=== PATIENT | female | born 1935 | race African-American/Black ===

== ENCOUNTER 2017-09-30 19:04 | Inpatient (IN) ==
[2017-10-10 12:49] VITALS: BP 107/64
== END 2017-10-10 12:30 | disposition home or self-care (01) | DRG 191 ==
LOC: EDUNIT# → EDBD → N.ED 19:04 → N.EDINP 21:22 → N.5E 22:10
PROVIDERS: ADMIT Internal Medicine; ATTEND Internal Medicine

== ENCOUNTER 2019-10-10 04:54 | Inpatient (IN) ==
[2019-10-10] MEDS ORDERED: ONDANSETRON 4 MG/2 ML VIAL IV STA (05:12)
[2019-10-10] MEDS ORDERED: methylPREDNISolone SOD SUC 125 MG/2 ML VIAL IV STA (05:12)
[2019-10-10] MEDS ORDERED: MORPHINE 4 MG/1 ML VIAL IV STA (05:12)
[2019-10-10 05:20] LABS: Basophils # 0.1 10*3/uL (0.0-0.2); Basophils % 1.2 % (0.0-0.8); Eosinophils # 0.9 10*3/uL (0.0-0.87); Eosinophils % 16.3 % (0.00-10.9); Hematocrit 41.3 VOL% (35.7-47.0); Hemoglobin 12.6 GM/DL (12.0-16.0); Immature Granulocytes % 0.2 %; Immature Granulocytes Absolute 0.01 #; Lymphocytes # 1.9 10*3/uL (1.4-4.0); Mean Corpuscular HGB Conc 30.5 GM/DL (32-36); Mean Corpuscular Volume 75.6 FL (87-102); Mean Platelet Volume 11.5 FL (9.6-12.0); Monocytes % 13.7 % (1.7-12.7); Neutrophils % 35.6 % (38.7-73.9); Platelet Count 180 T/CUMM (130-400); Red Blood Count 5.46 MC/CUMM (3.8-5.5); Red Cell Distribution Width 16.7 % (9.3-17.3); White Blood Count 5.6 T/CUMM (4-12)
[2019-10-10 05:22] LABS: PT Patient Result 10.7 SECS (9.8-11.9); Partial Thromboplastin Time 32.3 SECS (23.9-33.8)
[2019-10-10] MEDS ORDERED: ALBUTEROL 2.5 MG/3 ML NEB RESP TX ONE (05:25)
[2019-10-10 05:32] LABS: PT Patient Result 10.7 SECS (9.8-11.9)
[2019-10-10 05:43] LABS: ABG Base Excess 2.1 MMOL/L (-2.5-2.5); ABG HCO3 26.3 MMOL/L (20-26); ABG Oxygen Saturation 97.7 % (95-100); ABG PCO2 45.1 MM HG (35-48); ABG PH 7.394 (7.35-7.45); ABG PO2 96.8 MM HG (80-95); ABG TCO2 24.2 MMOL/L (23-27); Allen Test Positive
[2019-10-10] MEDS ORDERED: ALBUTEROL NEB SOLN 5 MG/ML 20 ML/BOTTLE CONT NEB SCH (05:45)
[2019-10-10 05:46] LABS: Albumin 3.9 G/DL (3.4-5.0); Bilirubin,Total 0.4 MG/DL (0.2-1.0); Calcium 9.4 MG/DL (8.5-10.1); Osmolality,Calculated 281.4 MOS/KG (273-304); Total Protein 7.2 G/DL (6.4-8.3)
[2019-10-10 05:55] LABS: Eosinophils 10 % (0-10); Hypochromasia 1+; Lymphocytes 31 % (20-55); Platelet Estimate Adequate; Segmented Neutrophils 47 % (50-85); Total Cells Counted 100
[2019-10-10 05:56] LABS: Microcytosis 1+
[2019-10-10] MEDS ORDERED: ALBUTEROL 2.5 MG/3 ML NEB RESP TX STA (08:22)
[2019-10-10] MEDS ORDERED: ONDANSETRON 4 MG/2 ML VIAL IV PRN (09:35)
[2019-10-10] MEDS ORDERED: ACETAMINOPHEN 325 MG TABLET PO PRN (09:35)
[2019-10-10] MEDS ORDERED: ALBUTEROL 2.5 MG/3 ML NEB RESP TX PRN (09:37)
[2019-10-10] MEDS: SODIUM CHLORIDE 0.45% 1,000 ML IV SCH ×2 (12:03→20:40)
[2019-10-10] MEDS: methylPREDNISolone SOD SUC 40 MG/1 ML VIAL IV SCH ×2 (12:05→18:55)
[2019-10-10] MEDS: ENOXAPARIN 40 MG/0.4 ML SYRINGE SUBCUT SCH (12:06)
[2019-10-10] MEDS: ALBUTEROL 2.5 MG/3 ML NEB RESP TX SCH ×2 (13:00→19:25)
[2019-10-10] MEDS: LEVOFLOXACIN INJ 500 MG in PREMIX 1 EACH IV SCH (14:18)
[2019-10-10] MEDS: POTASSIUM CHLORIDE 8 MEQ CAPSULE PO SCH ×2 (14:19→20:39)
[2019-10-10] MEDS ORDERED: IPRATROPIUM 500 MCG/2.5 ML NEB RESP TX PRN (15:00)
[2019-10-10] MEDS: THEOPHYLLINE ER (24 HR) 400 MG TABLET PO SCH (18:02)
[2019-10-10] MEDS: MONTELUKAST 10 MG TABLET PO SCH (20:39)
[2019-10-10] MEDS: BUDESONIDE/FORMOTEROL 160-4.5 INHALER 6 GM INH SCH (20:39)
[2019-10-10] MEDS: DOCUSATE SODIUM 100 MG CAPSULE PO SCH (20:39)
[2019-10-11] MEDS: ALBUTEROL 2.5 MG/3 ML NEB RESP TX SCH ×4 (00:45→19:33)
[2019-10-11] MEDS: methylPREDNISolone SOD SUC 40 MG/1 ML VIAL IV SCH ×3 (03:08→20:26)
[2019-10-11] MEDS: SODIUM CHLORIDE 0.45% 1,000 ML IV SCH ×3 (05:08→22:23)
[2019-10-11 05:34] LABS: Basophils % 0.6 % (0.0-0.8); Hematocrit 35.4 VOL% (35.7-47.0); Hemoglobin 10.7 GM/DL (12.0-16.0); Immature Granulocytes % 0.4 %; Immature Granulocytes Absolute 0.02 #; Lymphocytes # 0.5 10*3/uL (1.4-4.0); Lymphocytes % 10.3 % (21.3-54.2); Mean Corpuscular HGB Conc 30.2 GM/DL (32-36); Mean Platelet Volume 11.4 FL (9.6-12.0); Monocytes % 2.5 % (1.7-12.7); Neutrophils % 86.2 % (38.7-73.9); Platelet Count 153 T/CUMM (130-400); Red Blood Count 4.72 MC/CUMM (3.8-5.5); Red Cell Distribution Width 16.4 % (9.3-17.3); White Blood Count 5.2 T/CUMM (4-12)
[2019-10-11 06:01] LABS: Calcium 8.7 MG/DL (8.5-10.1); Osmolality,Calculated 276.2 MOS/KG (273-304)
[2019-10-11] MEDS: LORATADINE 10 MG TABLET PO SCH (09:11)
[2019-10-11] MEDS: MULTIVITAMIN (CENTRUM) TABLET PO SCH (09:11)
[2019-10-11] MEDS: OLMESARTAN 20 MG TABLET PO SCH (09:11)
[2019-10-11] MEDS: DOCUSATE SODIUM 100 MG CAPSULE PO SCH ×2 (09:11→20:26)
[2019-10-11] MEDS: CHOLECALCIFEROL 1,000 UNIT TABLET PO SCH (09:12)
[2019-10-11] MEDS: atenoloL 25 MG TABLET PO SCH (09:12)
[2019-10-11] MEDS: ROSUVASTATIN 10 MG TABLET PO SCH (09:13)
[2019-10-11] MEDS: hydroCHLOROthiazide 25 MG TABLET PO SCH (09:13)
[2019-10-11] MEDS: amLODIPine 10 MG TABLET PO SCH (09:13)
[2019-10-11] MEDS: CALCIUM CARBONATE CHEW 500 MG TABLET PO SCH (09:14)
[2019-10-11] MEDS: POTASSIUM CHLORIDE 8 MEQ CAPSULE PO SCH ×3 (09:14→20:26)
[2019-10-11] MEDS: MELOXICAM 7.5 MG TABLET PO SCH (09:14)
[2019-10-11] MEDS: THEOPHYLLINE ER (24 HR) 400 MG TABLET PO SCH ×2 (09:14→16:55)
[2019-10-11] MEDS: PANTOPRAZOLE 40 MG TABLET PO SCH (09:14)
[2019-10-11] MEDS: BUDESONIDE/FORMOTEROL 160-4.5 INHALER 6 GM INH SCH ×2 (09:15→20:26)
[2019-10-11] MEDS: FLUTICASONE 50 MCG NASAL SPRAY 16 GM BOTTLE BOTH NARES SCH (10:22)
[2019-10-11] MEDS: ENOXAPARIN 40 MG/0.4 ML SYRINGE SUBCUT SCH (11:10)
[2019-10-11 11:52] LABS: Platelet Estimate Adequate
[2019-10-11] MEDS: LEVOFLOXACIN INJ 500 MG in PREMIX 1 EACH IV SCH (14:00)
[2019-10-11] MEDS: MONTELUKAST 10 MG TABLET PO SCH (20:26)
[2019-10-12] MEDS: ALBUTEROL 2.5 MG/3 ML NEB RESP TX SCH ×4 (00:10→19:20)
[2019-10-12] MEDS: methylPREDNISolone SOD SUC 40 MG/1 ML VIAL IV SCH ×3 (04:06→20:37)
[2019-10-12] MEDS: SODIUM CHLORIDE 0.45% 1,000 ML IV SCH ×2 (06:35→17:29)
[2019-10-12] MEDS: THEOPHYLLINE ER (24 HR) 400 MG TABLET PO SCH ×2 (09:00→16:40)
[2019-10-12] MEDS: MULTIVITAMIN (CENTRUM) TABLET PO SCH (09:00)
[2019-10-12] MEDS: OLMESARTAN 20 MG TABLET PO SCH (09:01)
[2019-10-12] MEDS: CALCIUM CARBONATE CHEW 500 MG TABLET PO SCH (09:01)
[2019-10-12] MEDS: MELOXICAM 7.5 MG TABLET PO SCH (09:01)
[2019-10-12] MEDS: amLODIPine 10 MG TABLET PO SCH (09:01)
[2019-10-12] MEDS: DOCUSATE SODIUM 100 MG CAPSULE PO SCH ×2 (09:01→20:36)
[2019-10-12] MEDS: hydroCHLOROthiazide 25 MG TABLET PO SCH (09:01)
[2019-10-12] MEDS: POTASSIUM CHLORIDE 8 MEQ CAPSULE PO SCH ×3 (09:02→20:36)
[2019-10-12] MEDS: PANTOPRAZOLE 40 MG TABLET PO SCH (09:02)
[2019-10-12] MEDS: CHOLECALCIFEROL 1,000 UNIT TABLET PO SCH (09:02)
[2019-10-12] MEDS: ROSUVASTATIN 10 MG TABLET PO SCH (09:02)
[2019-10-12] MEDS: LORATADINE 10 MG TABLET PO SCH (09:02)
[2019-10-12] MEDS: atenoloL 25 MG TABLET PO SCH (09:02)
[2019-10-12] MEDS: FLUTICASONE 50 MCG NASAL SPRAY 16 GM BOTTLE BOTH NARES SCH (09:04)
[2019-10-12] MEDS: BUDESONIDE/FORMOTEROL 160-4.5 INHALER 6 GM INH SCH ×2 (09:04→20:37)
[2019-10-12] MEDS: ENOXAPARIN 40 MG/0.4 ML SYRINGE SUBCUT SCH (12:01)
[2019-10-12] MEDS: LEVOFLOXACIN INJ 500 MG in PREMIX 1 EACH IV SCH (15:00)
[2019-10-12] MEDS: MONTELUKAST 10 MG TABLET PO SCH (20:36)
[2019-10-13] MEDS: ALBUTEROL 2.5 MG/3 ML NEB RESP TX SCH ×4 (00:45→20:09)
[2019-10-13] MEDS: SODIUM CHLORIDE 0.45% 1,000 ML IV SCH ×2 (01:29→03:51)
[2019-10-13] MEDS: methylPREDNISolone SOD SUC 40 MG/1 ML VIAL IV SCH ×2 (04:55→17:11)
[2019-10-13 05:15] LABS: Basophils % 0.1 % (0.0-0.8); Hematocrit 34.1 VOL% (35.7-47.0); Hemoglobin 10.1 GM/DL (12.0-16.0); Immature Granulocytes % 0.6 %; Immature Granulocytes Absolute 0.06 #; Lymphocytes # 0.6 10*3/uL (1.4-4.0); Lymphocytes % 5.9 % (21.3-54.2); Mean Corpuscular HGB Conc 29.6 GM/DL (32-36); Mean Platelet Volume 11.6 FL (9.6-12.0); Neutrophils % 89.4 % (38.7-73.9); Platelet Count 146 T/CUMM (130-400); Red Blood Count 4.43 MC/CUMM (3.8-5.5); Red Cell Distribution Width 16.9 % (9.3-17.3); White Blood Count 9.7 T/CUMM (4-12)
[2019-10-13 05:35] LABS: Calcium 8.6 MG/DL (8.5-10.1); Osmolality,Calculated 284.5 MOS/KG (273-304)
[2019-10-13] MEDS: CALCIUM CARBONATE CHEW 500 MG TABLET PO SCH (09:30)
[2019-10-13] MEDS: OLMESARTAN 20 MG TABLET PO SCH (09:30)
[2019-10-13] MEDS: THEOPHYLLINE ER (24 HR) 400 MG TABLET PO SCH ×2 (09:30→17:11)
[2019-10-13] MEDS: ROSUVASTATIN 10 MG TABLET PO SCH (09:30)
[2019-10-13] MEDS: amLODIPine 10 MG TABLET PO SCH (09:31)
[2019-10-13] MEDS: MULTIVITAMIN (CENTRUM) TABLET PO SCH (09:31)
[2019-10-13] MEDS: hydroCHLOROthiazide 25 MG TABLET PO SCH (09:31)
[2019-10-13] MEDS: LORATADINE 10 MG TABLET PO SCH (09:31)
[2019-10-13] MEDS: atenoloL 25 MG TABLET PO SCH (09:31)
[2019-10-13] MEDS: CHOLECALCIFEROL 1,000 UNIT TABLET PO SCH (09:31)
[2019-10-13] MEDS: DOCUSATE SODIUM 100 MG CAPSULE PO SCH ×2 (09:31→20:27)
[2019-10-13] MEDS: POTASSIUM CHLORIDE 8 MEQ CAPSULE PO SCH ×3 (09:31→20:27)
[2019-10-13] MEDS: PANTOPRAZOLE 40 MG TABLET PO SCH (09:32)
[2019-10-13] MEDS: FLUTICASONE 50 MCG NASAL SPRAY 16 GM BOTTLE BOTH NARES SCH (09:35)
[2019-10-13] MEDS: BUDESONIDE/FORMOTEROL 160-4.5 INHALER 6 GM INH SCH ×2 (09:35→20:28)
[2019-10-13] MEDS: ENOXAPARIN 40 MG/0.4 ML SYRINGE SUBCUT SCH (11:00)
[2019-10-13] MEDS: LEVOFLOXACIN INJ 500 MG in PREMIX 1 EACH IV SCH (13:45)
[2019-10-13] MEDS: MONTELUKAST 10 MG TABLET PO SCH (20:27)
[2019-10-14] MEDS: ALBUTEROL 2.5 MG/3 ML NEB RESP TX SCH ×4 (00:06→20:20)
[2019-10-14] MEDS: methylPREDNISolone SOD SUC 40 MG/1 ML VIAL IV SCH (05:50)
[2019-10-14 06:20] LABS: Osmolality,Calculated 285.4 MOS/KG (273-304)
[2019-10-14] MEDS: CHOLECALCIFEROL 1,000 UNIT TABLET PO SCH (09:24)
[2019-10-14] MEDS: ROSUVASTATIN 10 MG TABLET PO SCH (09:24)
[2019-10-14] MEDS: POTASSIUM CHLORIDE 8 MEQ CAPSULE PO SCH ×3 (09:24→21:46)
[2019-10-14] MEDS: hydroCHLOROthiazide 25 MG TABLET PO SCH (09:25)
[2019-10-14] MEDS: amLODIPine 10 MG TABLET PO SCH (09:25)
[2019-10-14] MEDS: OLMESARTAN 20 MG TABLET PO SCH (09:25)
[2019-10-14] MEDS: DOCUSATE SODIUM 100 MG CAPSULE PO SCH ×2 (09:25→21:45)
[2019-10-14] MEDS: LORATADINE 10 MG TABLET PO SCH (09:25)
[2019-10-14] MEDS: FLUTICASONE 50 MCG NASAL SPRAY 16 GM BOTTLE BOTH NARES SCH (09:25)
[2019-10-14] MEDS: atenoloL 25 MG TABLET PO SCH (09:25)
[2019-10-14] MEDS: CALCIUM CARBONATE CHEW 500 MG TABLET PO SCH (09:25)
[2019-10-14] MEDS: THEOPHYLLINE ER (24 HR) 400 MG TABLET PO SCH ×2 (09:25→16:03)
[2019-10-14] MEDS: BUDESONIDE/FORMOTEROL 160-4.5 INHALER 6 GM INH SCH ×2 (09:25→21:46)
[2019-10-14] MEDS: MULTIVITAMIN (CENTRUM) TABLET PO SCH (09:25)
[2019-10-14] MEDS: PANTOPRAZOLE 40 MG TABLET PO SCH (09:28)
[2019-10-14] MEDS: ENOXAPARIN 40 MG/0.4 ML SYRINGE SUBCUT SCH (11:07)
[2019-10-14] MEDS: LEVOFLOXACIN INJ 500 MG in PREMIX 1 EACH IV SCH (14:06)
[2019-10-14] MEDS: MONTELUKAST 10 MG TABLET PO SCH (21:46)
[2019-10-15] MEDS: ALBUTEROL 2.5 MG/3 ML NEB RESP TX SCH ×2 (01:05→07:17)
[2019-10-15] MEDS ORDERED: methylPREDNISolone SOD SUC 40 MG/1 ML VIAL IV SCH (06:00)
[2019-10-15 07:06] LABS: Calcium 9.3 MG/DL (8.5-10.1); Osmolality,Calculated 277.7 MOS/KG (273-304)
[2019-10-15 07:42] LABS: Basophils # 0.1 10*3/uL (0.0-0.2); Basophils % 0.5 % (0.0-0.8); Eosinophils % 0.3 % (0.00-10.9); Hematocrit 39.5 VOL% (35.7-47.0); Immature Granulocytes % 1.1 %; Immature Granulocytes Absolute 0.11 #; Lymphocytes # 2.6 10*3/uL (1.4-4.0); Lymphocytes % 27.5 % (21.3-54.2); Mean Corpuscular HGB Conc 30.9 GM/DL (32-36); Mean Corpuscular Volume 74.4 FL (87-102); Mean Platelet Volume 11.7 FL (9.6-12.0); Monocytes % 8.8 % (1.7-12.7); NRBC # 0.02 10*3/uL; Neutrophils % 61.8 % (38.7-73.9); Platelet Count 174 T/CUMM (130-400); Red Blood Count 5.31 MC/CUMM (3.8-5.5); Red Cell Distribution Width 17.1 % (9.3-17.3); White Blood Count 9.6 T/CUMM (4-12)
[2019-10-15 07:43] LABS: Hemoglobin 12.2 GM/DL (12.0-16.0)
[2019-10-15] MEDS: CHOLECALCIFEROL 1,000 UNIT TABLET PO SCH (08:55)
[2019-10-15] MEDS: CALCIUM CARBONATE CHEW 500 MG TABLET PO SCH (08:55)
[2019-10-15] MEDS: PANTOPRAZOLE 40 MG TABLET PO SCH (08:55)
[2019-10-15] MEDS: LORATADINE 10 MG TABLET PO SCH (08:55)
[2019-10-15] MEDS: DOCUSATE SODIUM 100 MG CAPSULE PO SCH (08:55)
[2019-10-15] MEDS: MULTIVITAMIN (CENTRUM) TABLET PO SCH (08:55)
[2019-10-15] MEDS: OLMESARTAN 20 MG TABLET PO SCH (08:55)
[2019-10-15] MEDS: hydroCHLOROthiazide 25 MG TABLET PO SCH (08:55)
[2019-10-15] MEDS: THEOPHYLLINE ER (24 HR) 400 MG TABLET PO SCH (08:55)
[2019-10-15] MEDS: FLUTICASONE 50 MCG NASAL SPRAY 16 GM BOTTLE BOTH NARES SCH (08:55)
[2019-10-15] MEDS: ROSUVASTATIN 10 MG TABLET PO SCH (08:55)
[2019-10-15] MEDS: amLODIPine 10 MG TABLET PO SCH (08:55)
[2019-10-15] MEDS: POTASSIUM CHLORIDE 8 MEQ CAPSULE PO SCH (08:55)
[2019-10-15] MEDS: atenoloL 25 MG TABLET PO SCH (08:55)
[2019-10-15] MEDS: BUDESONIDE/FORMOTEROL 160-4.5 INHALER 6 GM INH SCH (08:55)
[2019-10-15 09:19] VITALS: BP 120/74
== END 2019-10-15 11:09 | disposition home or self-care (01) | DRG 192 ==
LOC: EDBD → EDUNIT# → N.ED 04:54 → N.EDINP 09:35 → N.3E 10:45 → N.4E 10-14 13:54
PROVIDERS: ADMIT Internal Medicine; ATTEND Internal Medicine

== ENCOUNTER 2020-12-28 07:17 | Inpatient (IN) ==
[2020-12-28] MEDS ORDERED: ALBUTEROL NEB SOLN 5 MG/ML 20 ML/BOTTLE CONT NEB SCH (08:00)
[2020-12-28 08:09] LABS: Basophils # 0.1 10*3/uL (0.0-0.2); Basophils % 1.1 % (0.0-0.8); Eosinophils # 0.8 10*3/uL (0.0-0.87); Eosinophils % 16.6 % (0.00-10.9); Hematocrit 37.1 VOL% (35.7-47.0); Hemoglobin 11.2 GM/DL (12.0-16.0); Immature Granulocytes % 0.4 %; Immature Granulocytes Absolute 0.02 #; Lymphocytes # 1.3 10*3/uL (1.4-4.0); Lymphocytes % 27.8 % (21.3-54.2); Mean Corpuscular HGB Conc 30.2 GM/DL (32-36); Mean Corpuscular Volume 75.9 FL (87-102); Mean Platelet Volume 11.3 FL (9.6-12.0); Monocytes % 12.9 % (1.7-12.7); Neutrophils % 41.2 % (38.7-73.9); Platelet Count 159 T/CUMM (130-400); Red Blood Count 4.89 MC/CUMM (3.8-5.5); Red Cell Distribution Width 18.7 % (9.3-17.3); White Blood Count 4.6 T/CUMM (4-12)
[2020-12-28 08:29] LABS: Eosinophils 14 % (0-10); Lymphocytes 24 % (20-55); Platelet Estimate Adequate; Segmented Neutrophils 53 % (50-85); Total Cells Counted 100
[2020-12-28 08:30] LABS: Hypochromasia 1+; Microcytosis 1+
[2020-12-28 08:31] LABS: Albumin 3.7 G/DL (3.4-5.0); Bilirubin,Total 0.4 MG/DL (0.20-1.00); Calcium 9.4 MG/DL (8.5-10.1); Osmolality,Calculated 284.4 MOS/KG (273-304); Potassium 3.6 MMOL/L (3.5-5.1); Total Protein 7.4 G/DL (6.4-8.2)
[2020-12-28] MEDS ORDERED: methylPREDNISolone SOD SUC 125 MG/2 ML VIAL IV STA (09:18)
[2020-12-28] MEDS ORDERED: ACETAMINOPHEN 325 MG TABLET PO PRN (10:29)
[2020-12-28] MEDS ORDERED: ONDANSETRON 4 MG/2 ML VIAL IV PRN (10:29)
[2020-12-28] MEDS: SODIUM CHLORIDE 0.9% 1,000 ML IV SCH ×2 (10:41→23:10)
[2020-12-28] MEDS ORDERED: ALBUTEROL 2.5 MG/3 ML NEB RESP TX SCH (11:00)
[2020-12-28] MEDS ORDERED: ALBUTEROL/IPRATROPIUM 3 ML NEB RESP TX PRN (13:18)
[2020-12-28] MEDS ORDERED: NON-FORMULARY MEDICATION (Albuterol Sulfate [Proair Hfa] 90 MCG/PUFF HFA aerosol inhaler) INH PRN (14:05)
[2020-12-28] MEDS: methylPREDNISolone SOD SUC 125 MG/2 ML VIAL IV SCH ×2 (14:43→20:20)
[2020-12-28] MEDS: LEVOFLOXACIN INJ 500 MG/100 ML PREMIX IV SCH (14:45)
[2020-12-28] MEDS: ALBUTEROL/IPRATROPIUM 3 ML NEB RESP TX SCH ×2 (14:45→19:12)
[2020-12-28] MEDS: MONTELUKAST 10 MG TABLET PO SCH (20:20)
[2020-12-28] MEDS: DOCUSATE SODIUM 100 MG CAPSULE PO SCH (20:20)
[2020-12-28] MEDS: BREZTRI INH SCH (22:15)
[2020-12-29] MEDS: methylPREDNISolone SOD SUC 125 MG/2 ML VIAL IV SCH ×4 (01:07→16:26)
[2020-12-29] MEDS: PANTOPRAZOLE 40 MG TABLET PO SCH (05:33)
[2020-12-29] MEDS: ALBUTEROL/IPRATROPIUM 3 ML NEB RESP TX SCH ×5 (07:18→19:32)
[2020-12-29] MEDS: atenoloL 25 MG TABLET PO SCH (09:24)
[2020-12-29] MEDS: hydroCHLOROthiazide 25 MG TABLET PO SCH (09:24)
[2020-12-29] MEDS: CHOLECALCIFEROL 1,000 UNIT TABLET PO SCH (09:24)
[2020-12-29] MEDS: CALCIUM CARBONATE CHEW 500 MG TABLET PO SCH (09:24)
[2020-12-29] MEDS: ROSUVASTATIN 10 MG TABLET PO SCH (09:24)
[2020-12-29] MEDS: OLMESARTAN 20 MG TABLET PO SCH (09:24)
[2020-12-29] MEDS: MULTIVITAMIN (CENTRUM) TABLET PO SCH (09:25)
[2020-12-29] MEDS: AZITHROMYCIN 250 MG TABLET PO SCH (09:25)
[2020-12-29] MEDS: amLODIPine 10 MG TABLET PO SCH (09:25)
[2020-12-29] MEDS: DOCUSATE SODIUM 100 MG CAPSULE PO SCH ×2 (09:26→22:36)
[2020-12-29] MEDS: BREZTRI INH SCH ×2 (09:35→22:38)
[2020-12-29] MEDS: LEVOFLOXACIN INJ 500 MG/100 ML PREMIX IV SCH (09:35)
[2020-12-29] MEDS: SODIUM CHLORIDE 0.9% 1,000 ML IV SCH ×2 (13:48→18:44)
[2020-12-29] MEDS: MONTELUKAST 10 MG TABLET PO SCH (22:34)
[2020-12-29] MEDS: FLUTICASONE 50 MCG NASAL SPRAY 16 GM BOTTLE BOTH NARES SCH (22:37)
[2020-12-30] MEDS: methylPREDNISolone SOD SUC 125 MG/2 ML VIAL IV SCH ×2 (01:25→15:26)
[2020-12-30] MEDS: SODIUM CHLORIDE 0.9% 1,000 ML IV SCH ×3 (01:29→18:29)
[2020-12-30] MEDS: PANTOPRAZOLE 40 MG TABLET PO SCH (07:13)
[2020-12-30] MEDS: ALBUTEROL/IPRATROPIUM 3 ML NEB RESP TX SCH ×4 (07:15→19:08)
[2020-12-30] MEDS ORDERED: methylPREDNISolone SOD SUC 125 MG/2 ML VIAL IV SCH (09:00)
[2020-12-30] MEDS: FLUTICASONE 50 MCG NASAL SPRAY 16 GM BOTTLE BOTH NARES SCH ×2 (09:17→21:56)
[2020-12-30] MEDS: LEVOFLOXACIN INJ 500 MG/100 ML PREMIX IV SCH (09:19)
[2020-12-30] MEDS: amLODIPine 10 MG TABLET PO SCH (09:19)
[2020-12-30] MEDS: OLMESARTAN 20 MG TABLET PO SCH (09:19)
[2020-12-30] MEDS: CALCIUM CARBONATE CHEW 500 MG TABLET PO SCH (09:19)
[2020-12-30] MEDS: CHOLECALCIFEROL 1,000 UNIT TABLET PO SCH (09:20)
[2020-12-30] MEDS: DOCUSATE SODIUM 100 MG CAPSULE PO SCH ×2 (09:20→21:52)
[2020-12-30] MEDS: ROSUVASTATIN 10 MG TABLET PO SCH (09:20)
[2020-12-30] MEDS: hydroCHLOROthiazide 25 MG TABLET PO SCH (09:20)
[2020-12-30] MEDS: MULTIVITAMIN (CENTRUM) TABLET PO SCH (09:23)
[2020-12-30] MEDS: atenoloL 25 MG TABLET PO SCH (09:23)
[2020-12-30] MEDS: BREZTRI INH SCH ×2 (11:09→23:06)
[2020-12-30] MEDS: MONTELUKAST 10 MG TABLET PO SCH (21:51)
[2020-12-31] MEDS: SODIUM CHLORIDE 0.9% 1,000 ML IV SCH ×2 (01:47→08:16)
[2020-12-31] MEDS: methylPREDNISolone SOD SUC 125 MG/2 ML VIAL IV SCH ×2 (03:21→16:09)
[2020-12-31 05:21] LABS: Hematocrit 33.1 VOL% (35.7-47.0); Hemoglobin 10.1 GM/DL (12.0-16.0); Immature Granulocytes % 0.4 %; Immature Granulocytes Absolute 0.04 #; Lymphocytes # 0.7 10*3/uL (1.4-4.0); Lymphocytes % 7.6 % (21.3-54.2); Mean Corpuscular HGB Conc 30.5 GM/DL (32-36); Monocytes % 4.6 % (1.7-12.7); Neutrophils % 87.4 % (38.7-73.9); Platelet Count 140 T/CUMM (130-400); Red Blood Count 4.47 MC/CUMM (3.8-5.5); Red Cell Distribution Width 18.8 % (9.3-17.3); White Blood Count 9.1 T/CUMM (4-12)
[2020-12-31 05:36] LABS: Calcium 8.5 MG/DL (8.5-10.1); Osmolality,Calculated 281.5 MOS/KG (273-304); Potassium 3.4 MMOL/L (3.5-5.1)
[2020-12-31] MEDS: ALBUTEROL/IPRATROPIUM 3 ML NEB RESP TX SCH ×4 (07:05→19:45)
[2020-12-31] MEDS ORDERED: hydrALAZINE 20 MG/1 ML VIAL IV PRN (09:47)
[2020-12-31] MEDS: PANTOPRAZOLE 40 MG TABLET PO SCH (10:10)
[2020-12-31] MEDS: MULTIVITAMIN (CENTRUM) TABLET PO SCH (10:10)
[2020-12-31] MEDS: hydroCHLOROthiazide 25 MG TABLET PO SCH (10:11)
[2020-12-31] MEDS: CALCIUM CARBONATE CHEW 500 MG TABLET PO SCH (10:11)
[2020-12-31] MEDS: CHOLECALCIFEROL 1,000 UNIT TABLET PO SCH (10:11)
[2020-12-31] MEDS: OLMESARTAN 20 MG TABLET PO SCH (10:11)
[2020-12-31] MEDS: AZITHROMYCIN 250 MG TABLET PO SCH (10:11)
[2020-12-31] MEDS: atenoloL 25 MG TABLET PO SCH (10:11)
[2020-12-31] MEDS: amLODIPine 10 MG TABLET PO SCH (10:12)
[2020-12-31] MEDS: DOCUSATE SODIUM 100 MG CAPSULE PO SCH ×2 (10:12→20:38)
[2020-12-31] MEDS: ROSUVASTATIN 10 MG TABLET PO SCH (10:12)
[2020-12-31] MEDS: FLUTICASONE 50 MCG NASAL SPRAY 16 GM BOTTLE BOTH NARES SCH ×2 (10:12→20:38)
[2020-12-31] MEDS: POTASSIUM CHLORIDE 20 MEQ TABLET PO PRN ×3 (10:17→22:09)
[2020-12-31] MEDS: LEVOFLOXACIN INJ 500 MG/100 ML PREMIX IV SCH (10:19)
[2020-12-31] MEDS: BREZTRI INH SCH ×2 (12:57→20:45)
[2020-12-31] MEDS: MONTELUKAST 10 MG TABLET PO SCH (20:38)
[2021-01-01] MEDS: methylPREDNISolone SOD SUC 125 MG/2 ML VIAL IV SCH ×2 (04:20→14:34)
[2021-01-01] MEDS: PANTOPRAZOLE 40 MG TABLET PO SCH ×2 (04:23→05:34)
[2021-01-01] MEDS: ALBUTEROL/IPRATROPIUM 3 ML NEB RESP TX SCH ×4 (07:25→19:20)
[2021-01-01] MEDS: DOCUSATE SODIUM 100 MG CAPSULE PO SCH ×2 (09:42→21:40)
[2021-01-01] MEDS: amLODIPine 10 MG TABLET PO SCH (09:42)
[2021-01-01] MEDS: hydroCHLOROthiazide 25 MG TABLET PO SCH (09:42)
[2021-01-01] MEDS: atenoloL 25 MG TABLET PO SCH (09:42)
[2021-01-01] MEDS: CHOLECALCIFEROL 1,000 UNIT TABLET PO SCH (09:42)
[2021-01-01] MEDS: FLUTICASONE 50 MCG NASAL SPRAY 16 GM BOTTLE BOTH NARES SCH ×2 (09:42→21:41)
[2021-01-01] MEDS: ROSUVASTATIN 10 MG TABLET PO SCH (09:42)
[2021-01-01] MEDS: MULTIVITAMIN (CENTRUM) TABLET PO SCH (09:42)
[2021-01-01] MEDS: CALCIUM CARBONATE CHEW 500 MG TABLET PO SCH (09:42)
[2021-01-01] MEDS: OLMESARTAN 20 MG TABLET PO SCH (09:42)
[2021-01-01] MEDS: BREZTRI INH SCH ×2 (09:43→21:41)
[2021-01-01] MEDS: LEVOFLOXACIN INJ 500 MG/100 ML PREMIX IV SCH (09:43)
[2021-01-01] MEDS: MONTELUKAST 10 MG TABLET PO SCH (21:40)
[2021-01-02] MEDS: methylPREDNISolone SOD SUC 125 MG/2 ML VIAL IV SCH (02:27)
[2021-01-02] MEDS: PANTOPRAZOLE 40 MG TABLET PO SCH (05:39)
[2021-01-02] MEDS: ALBUTEROL/IPRATROPIUM 3 ML NEB RESP TX SCH ×3 (07:41→14:17)
[2021-01-02] MEDS: CALCIUM CARBONATE CHEW 500 MG TABLET PO SCH (09:32)
[2021-01-02] MEDS: MULTIVITAMIN (CENTRUM) TABLET PO SCH (09:33)
[2021-01-02] MEDS: ROSUVASTATIN 10 MG TABLET PO SCH (09:33)
[2021-01-02] MEDS: LEVOFLOXACIN INJ 500 MG/100 ML PREMIX IV SCH (09:33)
[2021-01-02] MEDS: CHOLECALCIFEROL 1,000 UNIT TABLET PO SCH (09:33)
[2021-01-02] MEDS: DOCUSATE SODIUM 100 MG CAPSULE PO SCH (09:33)
[2021-01-02] MEDS: atenoloL 25 MG TABLET PO SCH (09:33)
[2021-01-02] MEDS: hydroCHLOROthiazide 25 MG TABLET PO SCH (09:33)
[2021-01-02] MEDS: amLODIPine 10 MG TABLET PO SCH (09:33)
[2021-01-02] MEDS: OLMESARTAN 20 MG TABLET PO SCH (09:33)
[2021-01-02] MEDS: FLUTICASONE 50 MCG NASAL SPRAY 16 GM BOTTLE BOTH NARES SCH (09:34)
[2021-01-02] MEDS: BREZTRI INH SCH (09:34)
[2021-01-02] MEDS ORDERED: predniSONE 20 MG TABLET PO SCH (10:30)
[2021-01-02 11:50] VITALS: BP 164/84
[2021-01-02] MEDS ORDERED: INFLUENZA VIRUS VACCINE 0.5 ML SYRINGE IM ONE (13:58)
== END 2021-01-02 15:49 | disposition home or self-care (01) | DRG 191 ==
LOC: N.ED 07:17 → INTOOBSV 09:20 → N.EDINP 09:20 → N.5E 10:13
PROVIDERS: ADMIT Internal Medicine; ATTEND Internal Medicine